=== PATIENT | male | born 1970 | race Caucasian/White ===

== ENCOUNTER 2018-11-10 08:41 | Emergency (ER) | payer OTHER ==
[~2018-11-10] VITALS: Ht 165.1 cm; Wt 68.0 kg
[2018-11-10 08:45] VITALS: BP 120/70; PULSE 82; RESP 18; Ht 165.1 cm; Wt 68.0 kg
[2018-11-10] MEDS ORDERED: KETOROLAC 60 MG INJ IM STA (09:05)
[2018-11-10] MEDS ORDERED: NAPR-985 PO (09:07)
[2018-11-10] MEDS ORDERED: HYDR-4011 PO (09:07)
[2018-11-10] MEDS ORDERED: MED4DP PO (09:07)
[2018-11-10] MEDS ORDERED: CYCL10TA7 PO (09:07)
[2018-11-10] MEDS ORDERED: DIAZEPAM 5 MG TAB PO ONE (09:30)
[2018-11-10] MEDS ORDERED: DEXAMETHASONE 10 MG/ML 1 ML INJ IM ONE (09:30)
--- NOTE | 2018-11-10 10:05 | ERD ---
ER Documentation Chief Complaint Chief Complaint pt bib self with c/o back pain since Tue, 48-year-old male presenting with back pain times 3 days. Patient states it started after he tried to tie his shoes 2 days ago. Patient had no fevers. Denies any numbness or tingling down extremities. Has normal urination bowel movement. Took Advil earlier today with mild alleviation. History is sinusitis. NKDA. Surgical history denies. Social history denies. Patient is not driving ROS All systems reviewed and are negative except as per history of present illness. Medications Home Meds Active Scripts Methylprednisolone* (Medrol* DOSE PACK) 4 Mg/Dose-Pack Tab.ds.pk, 4 MG PO . DIRECTED, #1 PACKET Prov:ALEE CARUSO PA-C 11/10/18 Cyclobenzaprine Hcl* (Cyclobenzaprine Hcl*) 10 Mg Tablet, 10 MG PO TID, #15 TAB Prov:ALEE CARUSO PA-C 11/10/18 Naproxen* (Naprosyn*) 500 Mg Tablet, 500 MG PO BID PRN for PAIN AND/OR INFLAMMATION, #30 TAB Prov:ALEE CARUSO PA-C 11/10/18 Hydrocodone/Acetaminophen ([place] 5-325 Tablet) 1 Each Tablet, 1 TAB PO Q6H PRN for PAIN, #7 TAB Prov:ALEE CARUSO PA-C 11/10/18 Allergies Allergies: Coded Allergies: No Known Allergy (Unverified , 11/10/18) PMhx/Soc Medical and Surgical Hx: pt denies Medical Hx, pt denies Surgical Hx Hx Alcohol Use: No Hx Tobacco Use: No Smoking Status: Never smoker FmHx Family History: No diabetes, No coronary disease, No other Physical Exam Vitals Vital Signs Date Temp Pulse Resp B/P (MAP) Pulse Ox O2 O2 Flow FiO2 Time Delivery Rate 11/10/18 98.3 82 18 120/70 98 08:45 (87) Physical Exam GENERAL: The patient is well-appearing, well-nourished, in no acute distress CHEST: Clear to auscultation bilaterally. There are no rales, wheezes or rhonchi. HEART: Regular rate and rhythm. No murmurs, clicks, rubs or gallops. No S3 or S4. ABDOMEN:Soft, nontender and nondistended. Good bowel sounds. No rebound or guarding. No gross peritonitis. No gross organomegaly or masses. BACK: No midline or flank tenderness. To palpation over paraspinous muscles of the lumbar spine. EXTREMITIES: Equal pulses bilaterally. There is no peripheral clubbing, cyanosis or edema. No focal swelling or erythema. Full range of motion. Grossly neurovascularly intact. NEUROLOGIC: Alert and oriented. Cranial nerves II through XII intact. Motor strength in all 4 extremities with 5 out of 5 strength. Sensation grossly intact. Normal speech and gait. SKIN: There is no apparent rash or petechiae. The skin is warm and dry. Results 24 hrs Current Medications Medications Dose Sig/[place] Start Time Status Last (Trade) Ordered Route PRN Stop Time Admin Dose Reason Admin Ketorolac 60 mg ONCE STAT 11/10/18 DC 11/10/18 Tromethamine IM 09:05 11/10/18 09:10 (Toradol) 09:06 Diazepam 5 mg ONCE ONCE 11/10/18 DC 11/10/18 (Valium) PO 09:30 11/10/18 09:09 09:31 10 mg ONCE ONCE 11/10/18 DC 11/10/18 Dexamethasone IM 09:30 11/10/18 09:10 (Decadron) 09:31 Procedures/MDM ER course: Toradol, Valium and Decadron given ED. MDM: 48-year-old male presenting with back pain. I have low suspicion for acute fracture dislocation. I have low suspicion for cauda equina, discitis or epidural abscess. Patient likely has musculoskeletal sprain and will be discharged with supportive medications. Patient is told symptoms change or worsen to return immediately to the ER. All questions answered at discharge Departure Diagnosis: Primary Impression: Back pain Condition: Stable Patient Instructions: Back Pain (Acute Or Chronic) Referrals: COMM[facility] YOU HAVE RECEIVED A MEDICAL SCREENING EXAM AND THE RESULTS INDICATE THAT YOU DO NOT HAVE A CONDITION THAT REQUIRES URGENT TREATMENT IN THE EMERGENCY DEPARTMENT. FURTHER EVALUATION AND TREATMENT OF YOUR CONDITION CAN WAIT UNTIL YOU ARE SEEN IN YOUR DOCTORS OFFICE WITHIN THE NEXT 1-2 DAYS. IT IS YOUR RESPONSIBILITY TO MAKE AN APPOINTMENT FOR FOLOW-UP CARE. IF YOU HAVE A PRIMARY DOCTOR --you should call your primary doctor and schedule an appointment IF YOU DO NOT HAVE A PRIMARY DOCTOR YOU CAN CALL OUR PHYSICIAN REFERRAL HOTLINE AT IF YOU CAN NOT AFFORD TO SEE A PHYSICIAN YOU CAN CHOSE FROM THE FOLLOWING [facility] [id number] [facility] [address] [facility] [address] [facility] [address] [facility] [address] [facility] [facility]. [address] Additional Instructions: FOLLOW UP WITH YOUR PRIMARY CARE PHYSICIAN TOMORROW.Return to this facility if you are not improving as expected. ALEE CARUSO PA-C Nov 10, 2018 10:05
== END 2018-11-10 09:26 | disposition home or self-care (01) ==
LOC: FTE 08:41
DX: M54.9 Dorsalgia, unspecified (principal)
CPT/HCPCS: J1100; J1885; 96372